=== PATIENT | female | born 1995 | race Caucasian/White ===

== ENCOUNTER 2018-01-22 06:53 | Inpatient (IN) | payer OTHER ==
[~2018-01-22] VITALS: Ht 172.7 cm; Wt 53.0 kg
[2018-01-22 08:39] LABS: BASOPHIL % 0.5 % (0-2); PLATELET COUNT 211 x10^3mcL (130-400); RED CELL DISTRIBUTION WIDTH 13.6 % (11.5-14.5)
[2018-01-22 08:50] LABS: CALCIUM 9.9 mg/dL (8.5-10.1); CARBON DIOXIDE 27.8 mmol/L (21-32); CHLORIDE SERUM 102 mmol/L (98-107); GFR1 > 60 mL/min; GLUCOSE SERUM 105 mg/dL (74-106); POTASSIUM SERUM 3.8 mmol/L (3.5-5.1); SODIUM SERUM 139 mmol/L (136-145)
[2018-01-22 08:53] LABS: ALBUMIN 4.8 g/dL (3.4-5.0); ALKALINE PHOSPHATASE 67 U/L (46-116); ALT/SGPT 21 U/L (14-59); AST/SGOT 15 U/L (15-37); BILIRUBIN TOTAL 0.6 mg/dL (0.20-1.00); TOTAL PROTEIN, SERUM 9.1 g/dL (6.4-8.2)
[2018-01-22 11:02] LABS: AMPHETAMINE QUAL UR NONE DETECTED (NEG <=1000)
[2018-01-22 14:49] LABS: T3 TOTAL 0.89 ng/mL
[2018-01-22 14:51] LABS: UA SPECIFIC GRAVITY >=1.030 (1.005-1.035); microscopic required? YES; urine erythrocyte TRACE (NEGATIVE)
[2018-01-22 14:53] LABS: MAGNESIUM 2.4 mg/dL (1.8-2.4); PHOSPHOROUS 4.2 mg/dL (2.5-4.9)
[2018-01-22 15:36] LABS: FREE T4 1.67 ng/dL (0.76-1.46); FREE THYROXINE INDEX 3.6 ug/dL (1.4-4.5); T4(THYROXINE) 10.1 ug/dL (4.7-13.3)
[2018-01-22 18:20] VITALS: BP 131/69
[2018-01-22 23:22] VITALS: BP 129/61
[2018-01-23 03:12] VITALS: BP 117/46
[2018-01-23 05:27] LABS: MAGNESIUM 1.9 mg/dL (1.8-2.4); PHOSPHOROUS 3.2 mg/dL (2.5-4.9)
[2018-01-23 05:30] LABS: BASOPHIL % 0.5 % (0-2); PLATELET COUNT 138 x10^3mcL (130-400); RED CELL DISTRIBUTION WIDTH 13.3 % (11.5-14.5)
[2018-01-23 05:34] LABS: CALCIUM 8.5 mg/dL (8.5-10.1); CARBON DIOXIDE 26.9 mmol/L (21-32); CHLORIDE SERUM 109 mmol/L (98-107); CREATININE SERUM 0.8 mg/dL (0.6-1.0); GFR1 > 60 mL/min; GLUCOSE SERUM 83 mg/dL (74-106); POTASSIUM SERUM 3.3 mmol/L (3.5-5.1); SODIUM SERUM 144 mmol/L (136-145)
[2018-01-23 06:07] LABS: RED BLOOD CELLS 3.6 M/mm3 (4.10-5.10)
[2018-01-23 06:51] LABS: IRON 90 ug/dL (50-170)
[2018-01-23 07:06] LABS: TOTAL IRON BINDING CAPACITY 199 ug/dL (250-450)
[2018-01-23 07:45] VITALS: BP 94/63
[2018-01-23 11:30] VITALS: BP 129/80
[2018-01-23 15:24] VITALS: BP 120/66
[2018-01-23 21:39] VITALS: BP 107/62
[2018-01-24 06:06] VITALS: BP 119/65
[2018-01-24 06:24] LABS: BASOPHIL % 0.7 % (0-2); PLATELET COUNT 156 x10^3mcL (130-400); RED CELL DISTRIBUTION WIDTH 13.3 % (11.5-14.5)
[2018-01-24 06:36] LABS: CALCIUM 8.9 mg/dL (8.5-10.1); CARBON DIOXIDE 25.9 mmol/L (21-32); CHLORIDE SERUM 104 mmol/L (98-107); CREATININE SERUM 0.7 mg/dL (0.6-1.0); GFR1 > 60 mL/min; GLUCOSE SERUM 86 mg/dL (74-106); MAGNESIUM 1.8 mg/dL (1.8-2.4); PHOSPHOROUS 3.8 mg/dL (2.5-4.9); POTASSIUM SERUM 3.4 mmol/L (3.5-5.1); SODIUM SERUM 140 mmol/L (136-145)
[2018-01-24 08:10] VITALS: BP 103/45
[2018-01-24] MEDS ORDERED: CELEXA20 MG PO (08:28)
[2018-01-24 09:49] VITALS: BP 103/45
[2018-01-24 10:15] VITALS: Ht 172.7 cm; Wt 53.0 kg
== END 2018-01-24 12:14 | disposition home or self-care (01) | DRG 91 ==
LOC: ED 06:53 → DU 13:29 → IC 13:29 → DU 01-23 18:25
PROVIDERS: Emergency Medicine; Family Medicine Sports Medicine; Student in an Organized Health Care Education/Training Program
DX: G92 Toxic encephalopathy (principal); N17.0 Acute kidney failure with tubular necrosis; F33.3 Major depressive disorder, recurrent, severe with psychotic symptoms; E86.0 Dehydration; F12.10 Cannabis abuse, uncomplicated; F41.9 Anxiety disorder, unspecified; E78.5 Hyperlipidemia, unspecified; R31.9 Hematuria, unspecified; E87.6 Hypokalemia; D64.9 Anemia, unspecified
CPT/HCPCS: 83880; 84439; G0480; J1630; J2060; J7030; J7042; Q0092

== ENCOUNTER 2018-04-24 10:47 | Emergency (ER) | payer OTHER ==
[~2018-04-24] VITALS: Ht 172.7 cm; Wt 61.7 kg
[~2018-04-24 10:47] MED LIST: CELEXA20 MG PO
[2018-04-24 10:55] VITALS: Ht 172.7 cm; Wt 61.7 kg
[2018-04-24 13:03] LABS: UA SPECIFIC GRAVITY 1.025 (1.005-1.035); microscopic required? YES; urine erythrocyte 1+ (NEGATIVE)
[2018-04-24 13:25] LABS: BASOPHIL % 0.8 % (0-2); PLATELET COUNT 175 x10^3mcL (130-400); RED CELL DISTRIBUTION WIDTH 12.6 % (11.5-14.5)
[2018-04-24 15:29] VITALS: BP 119/75
== END 2018-04-24 15:29 | disposition home or self-care (01) ==
LOC: ED 10:47
PROVIDERS: Emergency Medicine
DX: O20.0 Threatened abortion (principal); Z3A.01 Less than 8 weeks gestation of pregnancy
CPT/HCPCS: 36415